=== PATIENT | female | born 1990 | race Caucasian/White ===

== ENCOUNTER 2016-11-20 18:13 | Emergency (ER) ==
[2016-11-20 18:20] VITALS: TEMP 98.4; BMI 25.9
[2016-11-20] MEDS ORDERED: BACTRIM DS 800/160 MG PO STA (19:16)
[2016-11-20] MEDS ORDERED: MOTRIN PO STA (19:16)
--- NOTE | 2016-11-20 19:19 | ED.PDOC ---
General ED Provider: Dr. VIKAS LOWE Chief Complaint: Foot Pain/Injury Stated Complaint: Patient is a 26 year old female who comes to the Er with left distal foot pain and swelling that started a fewe days ago but got worse today with a red streak going along the dorsum of the foot. Time Seen by Physician: 19:15 Mode of Arrival: Walk-In Information Source: Patient Exam Limitations: No limitations Primary [facility] and Triage Documentation Reviewed and Agree: Yes Skin Complaint Exam - Skin/Soft Tissue Complaint/Exam Onset/Duration: 2 days Symptoms Are: Still present Timing: Constant Initial Severity: Mild Current Severity: Moderate Location: Dorsum of the left distal foot next to the 5th digit Character: Reports: Redness, Swelling, Raised, Painful Aggravating: Reports: None Alleviating: Reports: None Associated Signs and Symptoms: Reports: Tenderness, Red streaks Related History: Denies: Similar episode, Recent trauma, Foreign body, Insect bite/sting, Recent Med change, Prior MRSA/VRE, Recent inpatient, Recent travel, Immunocompromised Related Surgical History: Reports: None Recent Exposure to Others w/Similar Symptoms: No Skin Findings: Present: Erythema, Induration, Fluctuant mass, Lymphangitic streaking Joint Tenderness Present: No Differential Diagnoses: Abscess, Cellulitis Review of Systems - Review Of Systems Constitutional: Reports: No symptoms Eyes: Reports: No symptoms Ears, Nose, Mouth, Throat: Reports: No symptoms Respiratory: Reports: No symptoms Cardiac: Reports: No symptoms GI: Reports: No symptoms : Reports: No symptoms Musculoskeletal: Reports: No symptoms Skin: Reports: Lesions, Rash Neurological: Reports: Anxiety Endocrine: Reports: No symptoms Hematologic/Lymphatic: Reports: No symptoms All Other Systems: Reviewed and Negative Past Medical History - Past Medical History Endocrine: Reports: None Cardiovascular: Reports: None Respiratory: Reports: None Hematological: Reports: None Gastrointestinal: Reports: None Genitourinary: Reports: None Neuro/Psych: Reports: Anxiety Musculoskeletal: Reports: None Cancer: Reports: None Last Menstrual Period: 4 days ago - Surgical History General Surgical History: Reports: None - Family History Family History: Reports: None - Social History Smoking Status: Current every day smoker Hx Substance Use: No Alcohol Screening: None Physical Exam - Physical Exam Appearance: Ill-appearing, Well-nourished Ill-appearing: Mild Pain Distress: Moderate Neck: Supple Respiratory: Airway patent, Breath sounds clear, Breath sounds equal, Respirations nonlabored Cardiovascular: RRR, Pulses normal, No rub, No murmur GI/: Soft, Nontender, No masses, Bowel sounds normal, No Organomegaly Musculoskeletal: Normal strength, ROM intact, No edema, No calf tenderness Skin: Warm, Dry Neurological: Sensation intact, Motor intact, Reflexes intact, Alert, Oriented Psychiatric: Anxious Procedures - Incision and Drainage Site: 2 cm Instrument Used: Needle Lidocaine Used: No Type of Drainage: Present: Pus, Blood Irrigated: No Progress: Tolerated well Critical Care Note - Critical Care Note Total Time (mins): 0 Course - Course Orders, Labs, Meds: Orders Category Date Time Status CULTURE WOUND [WOUND CULTURE] Stat LAB 11/20/16 19:15 Received Ibuprofen [Motrin] MEDS 11/20/16 19:16 Discontinued 600 mg PO ONCE STA Sulfamethoxazole/Trimethoprim [Bactrim Ds 800/160 mg] MEDS 11/20/16 19:16 Discontinued 1 tab PO ONCE STA Medications Discontinued Medications Generic Name Dose Route Start Last Admin Trade Name Freq PRN Reason Stop Dose Admin Ibuprofen 600 mg 11/20/16 19:16 11/20/16 19:33 Motrin PO 11/20/16 19:17 600 mg ONCE STA Administration Trimethoprim/Sulfamethoxazole 1 tab 11/20/16 19:16 11/20/16 19:32 Bactrim Ds 800/160 Mg PO 11/20/16 19:17 1 tab ONCE STA Administration Vital Signs: Temp Pulse Resp BP Pulse Ox 11/20/16 19:35 88 16 118/91 H 98 11/20/16 18:14 98.4 F 83 16 154/95 H 98 Departure - Departure Time of Disposition: 19:23 Disposition: HOME SELF-CARE Discharge Problem: Foot abscess, left Instructions: Abscess (ED) Condition: Fair Pt referred to PMD for follow-up: Yes (3 days ) Additional Instructions: Take antibiotics as prescribed Clean the area and apply bandage at least twice a day. Follow up with PCP in 3 days Prescriptions: Ibuprofen [Motrin] 600 mg PO Q6H PRN #30 tablet PRN Reason: Analgesia Sulfamethoxazole/Trimethoprim [Bactrim Ds Tablet] 1 each PO BID #20 tablet Allergies/Adverse Reactions: Allergies No Known Allergies Allergy (Unverified 04/29/17 18:18) Home Medications: Ambulatory Orders Clonazepam 0.5 mg PO PRN PRN #120 05/06/16 Ibuprofen [Motrin] 600 mg PO Q6H PRN #30 tablet 11/20/16 Sulfamethoxazole/Trimethoprim [Bactrim Ds Tablet] 1 each PO BID #20 tablet 11/20 Disposition Discussed With: Patient
[2016-11-20 19:36] VITALS: BP 118/91
== END 2016-11-20 19:40 | disposition home or self-care (01) ==
LOC: ED 18:13
DX: L02.612 Cutaneous abscess of left foot (principal); F17.210 Nicotine dependence, cigarettes, uncomplicated
CPT/HCPCS: 87070; 87186; 99282

== ENCOUNTER 2017-06-10 10:53 | Outpatient (CLI) ==
--- NOTE | 2017-06-10 11:24 | DI ---
EXAM: Supine abdominal radiograph. HISTORY: Lower abdominal pain. COMPARISON: None available. FINDINGS: Air noted within nondistended large and small bowel. No dilated bowel loops are seen. No masses or abnormal calcifications identified. A small phlebolith noted in the left pelvis. Fat luciana nixon are maintained. Osseous structures are intact. IMPRESSION: No acute radiographic abnormality of the abdomen.
== END 2017-06-10 10:54 | disposition home or self-care (01) ==
LOC: RAD 10:53
PROVIDERS: ATTEND Nurse Practitioner Family
DX: R10.30 Lower abdominal pain, unspecified (principal)

== ENCOUNTER 2017-06-29 11:10 | Outpatient (CLI) ==
--- NOTE | 2017-06-29 13:17 | CT ---
Exam: CT of the abdomen pelvis without intravenous contrast. Comparison: None available. Reason for exam: Lower abdominal pain. FINDINGS: No pleural effusion, or focal consolidation in the partially imaged lung bases. The liver, spleen, adrenal glands, pancreas, and gallbladder appear grossly unremarkable within the l imitations of a noncontrasted evaluation. Image interpretation is limited by the lack of intravenous contrast administration. Small nodular density adjacent to the pancreatic tail is presumably a splenule. No hydronephrosis, hydroureter, or nephrolithiasis is seen in either kidney. No intra-abdominal free air or pelvic free fluid. No focal small bowel dilatation or transition point. 3.8 cm hypodensity in the left traci pelvis is presumably an adnexal/ovarian cyst. The bladder appears grossly unremarkable. No suspicious appearing osteoblastic or osteolytic lesions. Impression: 1. 3.8 cm hypodensity in the left traci pelvis is presumably adnexal/ovarian cyst. Transvaginal and transabdominal ultrasonographic evaluation of the pelvis may be performed for further characterizatio n. 2. Otherwise, no acute imaging findings are seen within the abdomen or pelvis
== END 2017-06-29 11:11 | disposition home or self-care (01) ==
LOC: RAD 11:10
PROVIDERS: ATTEND Nurse Practitioner Family
DX: R10.30 Lower abdominal pain, unspecified (principal)